=== PATIENT | male | born 1950 | race Caucasian/White ===

== ENCOUNTER 2021-08-31 15:57 | Inpatient (IN) | payer OTHER ==
[2021-08-31] MEDS ORDERED: ALBUTEROL SO4 2.5/IPRATROPIUM 0.5 INH SOL 3 ML VIAL.NEB. NEB ONE ×2 (16:18→17:17)
[2021-08-31] MEDS ORDERED: SODIUM CHLORIDE 1,000 ML IV STA (16:24)
[2021-08-31 16:27] LABS: VENOUS BASE EXCESS 4.7 mmol/L (-2-2); VENOUS O2 SATURATION 90.5 % (70-80); VENOUS PH 7.225 (7.310-7.410)
[2021-08-31 16:29] LABS: BASO % 0.1 % (0-2.0); HEMATOCRIT 18.4 % (35.4-49); LYMPH % 4.6 % (8-40); MCH 24.9 pg (25.7-33.7); MCHC 29.9 g/dl (32.0-35.9); MEAN CELL VOLUME 83.2 fl (80-96); MEAN PLT VOLUME 7.7 fl (7.5-11.1); NEUT % 93.3 % (42.8-82.8); PLATELET COUNT 372 10^3/uL (134-434); RBC 2.21 M/mm3 (4.00-5.60); RDW 18.1 % (11.9-15.9); WHITE BLOOD COUNT 18.5 K/mm3 (4.0-10.0)
[2021-08-31] MEDS ORDERED: DEXAMETHASONE SOD PHOSPHATE 20 MG/5 ML VIAL IVPB ONE (16:31)
[2021-08-31] MEDS ORDERED: PIPERACILLIN/TAZOB 3.375 GM 3.375 GM in DEXTROSE 5%-WATER - 50 ML IVPB ONE (16:31)
[2021-08-31 16:36] LABS: INR 1.33 (0.83-1.09); PROTHROMBIN TIME (PATIENT) 15.3 SEC (9.7-13.0)
[2021-08-31 16:39] LABS: ACTIVATED PTT 31.1 SECONDS (25.2-36.5)
[2021-08-31 16:40] LABS: VENOUS PCO2 79.1 mmHg (38-52)
[2021-08-31 16:41] LABS: HEMOGLOBIN 5.5 GM/dL (11.7-16.9)
[2021-08-31 16:50] LABS: CALCIUM 8.6 mg/dL (8.5-10.1)
[2021-08-31 16:51] LABS: ALBUMIN 1.8 g/dl (3.4-5.0); BLOOD UREA NITROGEN 48.8 mg/dL (7-18)
[2021-08-31] MEDS ORDERED: VANCOMYCIN 1 GM in D5W (PRE-DOCKED) 1,000 MG/250 ML IVPB ONE (16:51)
[2021-08-31 16:54] LABS: CREATININE 0.9 mg/dL (0.55-1.3)
[2021-08-31 16:55] LABS: BILIRUBIN,TOTAL 0.3 mg/dL (0.2-1); TOT PROT 6.8 g/dl (6.4-8.2)
[2021-08-31] MEDS ORDERED: PANTOPRAZOLE SODIUM 40 MG VIAL IVPUSH ONE (16:55)
[2021-08-31 17:04] LABS: ANISOCYTOSIS 2+; MACROCYTOSIS 0
[2021-08-31] MEDS ORDERED: DEXAMETHASONE SOD PHOSPHATE 10 MG/1 ML VIAL ONE (17:17)
[2021-08-31] MEDS ORDERED: PANTOPRAZOLE SODIUM 40 MG VIAL ONE ×2 (17:17→19:43)
[2021-08-31] MEDS ORDERED: PIPERACILLIN/TAZOB 3.375 GM 3.375 GM/50 ML BAG IVPB ONE (17:18)
[2021-08-31 17:22] LABS: EPI CELLS >36 /uL (0-25.1); HYALINE CASTS 64 /uL (0-3.1); PH,URINE 5.5 (5.0-8.0); URINE APPEARANCE TURBID; URINE BACTERIA 13 /uL (0-1359); URINE BILIRUBIN NEGATIVE (NEGATIVE); URINE COLOR DK YELLOW; URINE GLUCOSE (UA) NEGATIVE (NEGATIVE); URINE KETONE NEGATIVE (NEGATIVE); URINE LEUK ESTERASE TRACE (NEGATIVE); URINE NITRITE NEGATIVE (NEGATIVE); URINE PROTEIN 1+ (NEGATIVE); URINE UROBILINOGEN 0.2 mg/dL (0.2-1.0); URINE WBC 32 /uL (0-25.8)
[2021-08-31] MEDS: ALBUTEROL SO4 2.5/IPRATROPIUM 0.5 INH SOL 3 ML VIAL.NEB. NEB SCH ×2 (17:44→17:45)
[2021-08-31 17:47] LABS: LACTIC ACID 4.9 mmol/L (0.4-2.0)
[2021-08-31] MEDS ORDERED: LACTATED RINGERS SOLUTION 1000 ML INFUS.BAG IV ONE (17:53)
[2021-08-31] MEDS ORDERED: SODIUM CHLORIDE 0.9% 500 ML INFUS.BAG IV ONE (17:55)
[2021-08-31 17:58] LABS: URINE RBC 274.4 /uL (0-23.9)
[2021-08-31] MEDS ORDERED: VANCOMYCIN 1 GRAM (PRE-DOCKED) 1,000 MG/250 ML BAG IVPB ONE (18:19)
[2021-08-31] MEDS ORDERED: ACETAMINOPHEN 325 MG TABLET (FP) PO PRN (18:44)
[2021-08-31] MEDS ORDERED: PANTOPRAZOLE SODIUM 160 MG in SODIUM CHLORIDE 290 ML IVPB SCH (19:00)
[2021-08-31] MEDS ORDERED: SODIUM CHLORIDE 1,000 ML IV SCH (19:00)
[2021-08-31 21:57] LABS: LACTIC ACID 2.6 mmol/L (0.4-2.0)
[2021-08-31] MEDS ORDERED: VANCOMYCIN 1 GM in D5W (PRE-DOCKED) 1,000 MG/250 ML IVPB SCH (22:00)
[2021-08-31] MEDS: NOREPINEPHRINE BITARTRATE 16,000 MCG in SODIUM CHLORIDE 484 ML IV SCH (23:05)
[2021-09-01] MEDS ORDERED: ACETAMINOPHEN 650 MG/20.3 ML ORAL SOLUTION (CUPS) ONE (00:38)
[2021-09-01] MEDS: FENTANYL IVPB 500 MCG/100 ML BAG IVPB SCH ×2 (00:59→12:30)
[2021-09-01] MEDS ORDERED: fentaNYL CITRATE 250 MCG/5 ML VIAL ONE (01:01)
[2021-09-01] MEDS ORDERED: VASOPRESSIN 20 UNITS/ML VIAL IV ONE ×2 (01:29→11:51)
[2021-09-01] MEDS ORDERED: POLYETHYLENE GLYCOL (HEALTHYLAX) 3350 17 GM PACKET ONE (01:31)
[2021-09-01] MEDS ORDERED: FAMOTIDINE 10 MG TABLET ONE (01:31)
[2021-09-01] MEDS: VASOPRESSIN 40 UNITS/100 ML BAG IV SCH ×3 (02:15→22:01)
[2021-09-01 02:41] LABS: ARTERIAL BLD GAS O2 SATURATION 86.1 % (95-98); ARTERIAL BLOOD GAS BASE EXCESS -2.4 mmol/L (-2-2); ARTERIAL BLOOD GAS PO2 68.3 mmHg (80-100)
[2021-09-01 02:43] LABS: VENT MODE V-A/C; VENT RATE 16
[2021-09-01 02:44] LABS: ARTERIAL BLOOD GAS pH 7.128 (7.350-7.450)
[2021-09-01] MEDS: PIPERACILLIN/TAZOB 3.375 GM 3.375 GM in DEXTROSE 5%-WATER - 50 ML IVPB SCH ×3 (02:57→18:22)
[2021-09-01] MEDS: HYDROCORTISONE SOD SUCCINATE 100 MG/2 ML VIAL IVPUSH SCH ×3 (02:57→18:22)
[2021-09-01] MEDS ORDERED: HYDROCORTISONE SOD SUCCINATE 100 MG/2 ML VIAL ONE (02:58)
[2021-09-01] MEDS ORDERED: PIPERACILLIN/TAZOB 3.375 GM 3.375 GM/50 ML BAG IVPB ONE (02:59)
[2021-09-01 05:42] LABS: ARTERIAL BLD GAS O2 SATURATION 86.9 % (95-98); ARTERIAL BLOOD GAS BASE EXCESS -3.4 mmol/L (-2-2); ARTERIAL BLOOD GAS PO2 67.5 mmHg (80-100)
[2021-09-01 05:59] LABS: ARTERIAL BLOOD GAS pH 7.156 (7.350-7.450)
[2021-09-01 06:00] LABS: VENT MODE V-A/C; VENT RATE 20
[2021-09-01] MEDS ORDERED: VANCOMYCIN 1 GRAM (PRE-DOCKED) 1 GM/250 ML BAG IVPB ONE (06:00)
[2021-09-01] MEDS ORDERED: PIPERACILLIN/TAZOBACTAM 3.375 GM VIAL IVPB ONE ×2 (09:59→18:19)
[2021-09-01] MEDS ORDERED: DEXTROSE 5%-WATER - 50 ML IVPB ONE ×2 (09:59→18:19)
[2021-09-01] MEDS ORDERED: DEXAMETHASONE SOD PHOSPHATE 10 MG/1 ML VIAL IVPUSH SCH (10:00)
[2021-09-01] MEDS: PANTOPRAZOLE SODIUM 40 MG VIAL IVPUSH SCH ×2 (10:02→22:00)
[2021-09-01] MEDS: ERGOCALCIFEROL 8,000 UNITS/ML DROPSBTL PO SCH ×2 (10:05→10:36)
[2021-09-01] MEDS: ZINC SULFATE 220 MG CAPSULE (FP) PO SCH ×2 (10:06→10:37)
[2021-09-01] MEDS: FLUDROCORTISONE ACETATE 0.1 MG TABLET (FP) PO SCH ×2 (10:06→10:37)
[2021-09-01] MEDS: MUPIROCIN 2% TOPICAL OINTMENT FOR DECOLONIZATION NS SCH ×2 (10:34→22:00)
[2021-09-01] MEDS ORDERED: FENTANYL NS IVPB 500 MCG/100 ML BAG IVPB ONE (11:51)
[2021-09-01 11:52] LABS: HEMATOCRIT 28.9 % (35.4-49); MCH 26.7 pg (25.7-33.7); MEAN CELL VOLUME 86.2 fl (80-96); MEAN PLT VOLUME 8.2 fl (7.5-11.1); PLATELET COUNT 272 10^3/uL (134-434); RBC 3.35 M/mm3 (4.00-5.60); RDW 16.1 % (11.9-15.9); WHITE BLOOD COUNT 24.3 K/mm3 (4.0-10.0)
[2021-09-01 12:08] LABS: IRON SERUM 13 ug/dL (50-175); TOTAL IRON BINDING CAPACITY 148 ug/dL (250-450)
[2021-09-01 12:09] LABS: CALCIUM 7.5 mg/dL (8.5-10.1)
[2021-09-01 12:10] LABS: BLOOD UREA NITROGEN 57.5 mg/dL (7-18)
[2021-09-01 12:13] LABS: CREATININE 1.2 mg/dL (0.55-1.3)
[2021-09-01] MEDS ORDERED: PIPERACILLIN/TAZOB 3.375 GM 3.375 GM in DEXTROSE 5%-WATER - 50 ML IVPB SCH (18:00)
[2021-09-01] MEDS: NOREPINEPHRINE BITARTRATE 16,000 MCG in SODIUM CHLORIDE 484 ML IV SCH (18:23)
[2021-09-01] MEDS ORDERED: ONDANSETRON 4 MG/2 ML VIAL IVPUSH PRN (18:44)
[2021-09-01] MEDS: FENTANYL NS IVPB 500 MCG/100 ML BAG IVPB SCH ×2 (19:00→22:00)
[2021-09-01 20:18] LABS: BASO % 0.1 % (0-2.0); HEMATOCRIT 27.3 % (35.4-49); HEMOGLOBIN 8.5 GM/dL (11.7-16.9); LYMPH % 0.8 % (8-40); MCH 26.8 pg (25.7-33.7); MCHC 31.3 g/dl (32.0-35.9); MEAN CELL VOLUME 85.8 fl (80-96); MONO % 0.7 % (3.8-10.2); NEUT % 98.4 % (42.8-82.8); PLATELET COUNT 233 10^3/uL (134-434); RBC 3.18 M/mm3 (4.00-5.60); RDW 16.5 % (11.9-15.9); WHITE BLOOD COUNT 26.4 K/mm3 (4.0-10.0)
[2021-09-01 20:45] LABS: ANISOCYTOSIS 2+; MACROCYTOSIS 0; TOXIC GRANULATION 1+
[2021-09-01] MEDS: CHLORHEXIDINE GLUCONATE 4% CLEANSER FOR DECOLONIZATION TP SCH (22:00)
[2021-09-02] MEDS ORDERED: DEXTROSE 5%-WATER - 50 ML IVPB ONE ×3 (01:10→17:05)
[2021-09-02] MEDS ORDERED: PIPERACILLIN/TAZOBACTAM 3.375 GM VIAL IVPB ONE ×3 (01:10→17:05)
[2021-09-02] MEDS: VASOPRESSIN 40 UNITS/100 ML BAG IV SCH ×3 (02:03→17:57)
[2021-09-02] MEDS: PIPERACILLIN/TAZOB 3.375 GM 3.375 GM in DEXTROSE 5%-WATER - 50 ML IVPB SCH ×3 (02:04→17:56)
[2021-09-02] MEDS: HYDROCORTISONE SOD SUCCINATE 100 MG/2 ML VIAL IVPUSH SCH ×3 (02:04→17:56)
[2021-09-02 06:03] LABS: ARTERIAL BLOOD GAS BASE EXCESS -6.1 mmol/L (-2-2); ARTERIAL BLOOD GAS PO2 141.4 mmHg (80-100)
[2021-09-02 06:04] LABS: ALLENS TEST POSITIVE
[2021-09-02 06:05] LABS: ARTERIAL BLOOD GAS pH 7.153 (7.350-7.450); VENT MODE A/C; VENT RATE 20
[2021-09-02] MEDS: NOREPINEPHRINE BITARTRATE 16,000 MCG in SODIUM CHLORIDE 484 ML IV SCH ×2 (06:14→21:22)
[2021-09-02] MEDS: FENTANYL NS IVPB 500 MCG/100 ML BAG IVPB SCH ×3 (06:15→20:20)
[2021-09-02] MEDS ORDERED: ACETAMINOPHEN 1000 MG/100 ML BAG IVPB ONE (06:18)
[2021-09-02 07:35] LABS: HEMOGLOBIN 8.5 GM/dL (11.7-16.9); MCH 27.2 pg (25.7-33.7); MCHC 31.3 g/dl (32.0-35.9); MEAN CELL VOLUME 86.7 fl (80-96); MEAN PLT VOLUME 8.5 fl (7.5-11.1); PLATELET COUNT 243 10^3/uL (134-434); RBC 3.11 M/mm3 (4.00-5.60); RDW 16.5 % (11.9-15.9)
[2021-09-02 07:45] LABS: CHLORIDE 116 mmol/L (98-107); SODIUM 148 mmol/L (136-145)
[2021-09-02 07:53] LABS: CALCIUM 7.5 mg/dL (8.5-10.1)
[2021-09-02 07:54] LABS: ALBUMIN 1.5 g/dl (3.4-5.0); ANION GAP 4 MMOL/L (8-16); BLOOD UREA NITROGEN 62.1 mg/dL (7-18); CO2 28 mmol/L (21-32); MAGNESIUM 2.3 mg/dL (1.8-2.4)
[2021-09-02 07:56] LABS: PHOSPHOROUS 7.2 mg/dL (2.5-4.9); SGPT/ALT 23 U/L (13-61)
[2021-09-02 07:57] LABS: CREATININE 1.6 mg/dL (0.55-1.3); SGOT/AST 99 U/L (15-37)
[2021-09-02 07:58] LABS: BILIRUBIN,TOTAL 0.7 mg/dL (0.2-1); TOT PROT 6.1 g/dl (6.4-8.2)
[2021-09-02 07:59] LABS: ALK PHOS 72 U/L (45-117); GLUCOSE,RANDOM 42 mg/dL (74-106)
[2021-09-02] MEDS ORDERED: DEXTROSE 50%-WATER - 25 GM/50 ML VIAL IVPUSH ONE (08:02)
[2021-09-02] MEDS ORDERED: DEXTROSE 10%-WATER 500 ML INFUS.BAG IV ONE (08:31)
[2021-09-02] MEDS ORDERED: SODIUM CHLORIDE 0.45% 1,000 ML IV SCH (08:45)
[2021-09-02] MEDS: MUPIROCIN 2% TOPICAL OINTMENT FOR DECOLONIZATION NS SCH ×2 (09:02→21:22)
[2021-09-02] MEDS: PANTOPRAZOLE SODIUM 40 MG VIAL IVPUSH SCH ×2 (09:03→21:21)
[2021-09-02 09:26] LABS: ANISOCYTOSIS 0; HELMET CELLS 0; HOWELL-JOLLY BODIES 0; MACROCYTOSIS 0; OVALOCYTE 0; ROULEAU 0; SICKELED CELLS 0; TARGET CELLS 0; TEAR DROP CELLS 0; TOXIC GRANULATION 0
[2021-09-02 10:33] LABS: ARTERIAL BLOOD GAS BASE EXCESS -0.4 mmol/L (-2-2); ARTERIAL BLOOD GAS PO2 68.2 mmHg (80-100); ARTERIAL BLOOD GAS pH 7.215 (7.350-7.450)
[2021-09-02 10:35] LABS: ALLENS TEST POSITIVE; VENT MODE AC; VENT RATE 22
[2021-09-02] MEDS ORDERED: LACTATED RINGERS SOLUTION 1,000 ML/1,000 ML INFUS.BAG IV STA (10:51)
[2021-09-02] MEDS ORDERED: morphine SULFATE 4 MG/ML VIAL IVPUSH ONE (10:53)
[2021-09-02] MEDS ORDERED: LORazepam 2 MG/ML SDV VIAL IVPB ONE (10:54)
[2021-09-02] MEDS: LACTATED RINGERS SOLUTION 1,000 ML/1,000 ML INFUS.BAG IV SCH ×2 (11:09→23:48)
[2021-09-02 15:29] VITALS: BMI 15.6
[2021-09-02] MEDS: CHLORHEXIDINE GLUCONATE 4% CLEANSER FOR DECOLONIZATION TP SCH (21:22)
[2021-09-03] MEDS ORDERED: DEXTROSE 5%-WATER - 50 ML IVPB ONE ×2 (02:45→09:02)
[2021-09-03] MEDS ORDERED: PIPERACILLIN/TAZOBACTAM 3.375 GM VIAL IVPB ONE ×2 (02:45→09:02)
[2021-09-03] MEDS: PIPERACILLIN/TAZOB 3.375 GM 3.375 GM in DEXTROSE 5%-WATER - 50 ML IVPB SCH ×3 (02:55→18:00)
[2021-09-03] MEDS: HYDROCORTISONE SOD SUCCINATE 100 MG/2 ML VIAL IVPUSH SCH ×3 (02:55→18:00)
[2021-09-03] MEDS: FENTANYL NS IVPB 500 MCG/100 ML BAG IVPB SCH ×2 (03:21→09:58)
[2021-09-03] MEDS: VASOPRESSIN 40 UNITS/100 ML BAG IV SCH ×2 (04:40→15:18)
[2021-09-03 07:02] LABS: HEMATOCRIT 25.2 % (35.4-49); HEMOGLOBIN 7.6 GM/dL (11.7-16.9); MCH 26.4 pg (25.7-33.7); MCHC 30.2 g/dl (32.0-35.9); MEAN CELL VOLUME 87.5 fl (80-96); MEAN PLT VOLUME 8.7 fl (7.5-11.1); PLATELET COUNT 173 10^3/uL (134-434); RBC 2.88 M/mm3 (4.00-5.60); RDW 17.2 % (11.9-15.9); WHITE BLOOD COUNT 27.3 K/mm3 (4.0-10.0)
[2021-09-03 07:23] LABS: CALCIUM 7.4 mg/dL (8.5-10.1)
[2021-09-03 07:24] LABS: ALBUMIN 1.3 g/dl (3.4-5.0); BLOOD UREA NITROGEN 69.1 mg/dL (7-18); MAGNESIUM 2.2 mg/dL (1.8-2.4)
[2021-09-03 07:26] LABS: CREATININE 1.7 mg/dL (0.55-1.3)
[2021-09-03 07:27] LABS: BILIRUBIN,TOTAL 0.6 mg/dL (0.2-1); PHOSPHOROUS 6.3 mg/dL (2.5-4.9); TOT PROT 5.6 g/dl (6.4-8.2)
[2021-09-03] MEDS ORDERED: LORazepam 2 MG/ML SDV VIAL IVPUSH ONE (07:47)
[2021-09-03 09:40] LABS: ANISOCYTOSIS 1+; MACROCYTOSIS 0
[2021-09-03] MEDS: PANTOPRAZOLE SODIUM 40 MG VIAL IVPUSH SCH (09:59)
[2021-09-03] MEDS: MUPIROCIN 2% TOPICAL OINTMENT FOR DECOLONIZATION NS SCH (09:59)
[2021-09-03] MEDS: LACTATED RINGERS SOLUTION 1,000 ML/1,000 ML INFUS.BAG IV SCH (11:31)
[2021-09-03 14:21] VITALS: TEMP 98.3
[2021-09-03] MEDS ORDERED: morphine SULFATE 4 MG/ML VIAL IVPUSH ONE (16:21)
[2021-09-03] MEDS ORDERED: morphine SULFATE 4 MG/ML VIAL ONE (16:25)
[2021-09-03] MEDS ORDERED: MORPHINE SULFATE/0.9% NACL/PF 100 MG/100 ML BAG IVPB SCH (16:30)
[2021-09-04 03:58] VITALS: BP 48/34; PULSE 72
== END 2021-09-04 05:10 | disposition expired | DRG 870 ==
LOC: JER 15:57 → JERBED 16:29 → JICU 09-01 05:44
PROVIDERS: ADMIT Internal Medicine; ATTEND Internal Medicine Pulmonary Disease
PROC: 5A1955Z Respiratory Ventilation, Greater than 96 Consecutive Hours (ICD-10-PCS; principal; 2021-08-31)
PROC: 06HM33Z Insertion of Infusion Device into Right Femoral Vein, Percutaneous Approach (ICD-10-PCS; 2021-08-31)
PROC: 30233N1 Transfusion of Nonautologous Red Blood Cells into Peripheral Vein, Percutaneous Approach (ICD-10-PCS; 2021-08-31)
DX: A41.89 Other specified sepsis (principal); R65.21 Severe sepsis with septic shock; J80 Acute respiratory distress syndrome; U07.1 COVID-19; J12.82 Pneumonia due to coronavirus disease 2019; E43 Unspecified severe protein-calorie malnutrition; Z68.1 Body mass index [BMI] 19.9 or less, adult; E87.2 Acidosis; D62 Acute posthemorrhagic anemia; E87.1 Hypo-osmolality and hyponatremia; N17.9 Acute kidney failure, unspecified; R64 Cachexia; I24.8 Other forms of acute ischemic heart disease; I95.9 Hypotension, unspecified; R50.9 Fever, unspecified; K21.9 Gastro-esophageal reflux disease without esophagitis; J84.10 Pulmonary fibrosis, unspecified; E11.9 Type 2 diabetes mellitus without complications; Z93.1 Gastrostomy status; Z93.0 Tracheostomy status; Z86.718 Personal history of other venous thrombosis and embolism
CPT/HCPCS: 36415; 36430; 36600; 71045-TC-FY; 80048; 80053; 81003; 82272; 82553; 82607; 82728; 82746; 82803; 82962; 83540; 83550; 83605; 83735; 84100; 84484; 85025; 85027; 85610; 85730; 86140; 86850; 86900; 86901; 86922; 87040; 87086; 87804; 87899; 93005; 93010; 93970; 94002; 99285-25; C9803; J1100; J3490; P9058; U0003; U0005